=== PATIENT | male | born 1980 | race Caucasian/White ===

== ENCOUNTER 2021-12-12 07:59 | Emergency (ER) | payer OTHER, SELFPAY ==
--- NOTE | ~2021-12-12 | XR_ITS ---
EXAMINATION: XR TIBIA-FIBULA LEFT XR FOOT, LEFT CLINICAL INFORMATION: Leg pain. Left foot pain. Question osteomyelitis, fracture. COMPARISON: None TECHNIQUE: AP, lateral, and oblique views of the left foot. FINDINGS: Left tibia and fibula: Bones are osteopenic. Cortical irregularity at the proximal fibular shaft is consistent with an old healed fracture. No acute fracture or malalignment. Mild osteoarthritis of the knee. Multiple dystrophic calcifications are noted. Soft tissues are diffusely swollen and edematous. Fatty atrophy of the calf musculature is suspected. Mild osteoarthritis is noted at the talocrural joint. Left foot: Soft tissues are diffusely swollen and edematous at the foot. There is diffuse osteopenia throughout the forefoot. Subtle erosions at the metatarsal heads and phalanges are possible, though sensitivity is limited by the degree of pre-existing osteopenia. No clear foci of active osseous destruction are identified. Hyperdensity in the overlying soft tissues is likely due to overlying skin changes. Mild pes cavus morphology at the foot. No fractures. XR/XR tibia fibula LT 2V IMPRESSION: Marked soft tissue swelling in the left lower leg and foot. No fractures. No clear findings of osteomyelitis are identified, though sensitivity for osteomyelitis at the forefoot is limited by the significant osteopenia in this region. Consider correlation with MRI of the left forefoot with and without contrast for further assessment if there is significant clinical concern for osteomyelitis in this region.
--- NOTE | ~2021-12-12 | US_ITS ---
EXAMINATION: US VENOUS ULTRASOUND WITH DOPPLER LOWER EXTREMITY, LEFT CLINICAL INFORMATION: Left lower extremity pain, rule out deep venous thrombosis. COMPARISON: None TECHNIQUE: Ultrasound of the deep veins is performed from the hip to the calf with compression sonography and color and pulse Doppler assessment. Spectral analysis with color-flow imaging is performed. FINDINGS: There is normal venous compression and respiratory variation and augmented flow. The visualized common femoral vein, superficial femoral vein, profunda femoral vein, popliteal vein, and the trifurcation region shows no evidence of deep venous thrombosis. No left popliteal cyst. The subcutaneous soft tissues are unremarkable. If the patient's symptoms persist, followup ultrasound in 5 days 7 days might be of value to exclude proximal propagation from a non-visualized calf vein. US/US venous duplex LE IMPRESSION: No DVT demonstrated in the left lower extremity.
--- NOTE | ~2021-12-12 | XR_ITS ---
EXAMINATION: XR TIBIA-FIBULA LEFT XR FOOT, LEFT CLINICAL INFORMATION: Leg pain. Left foot pain. Question osteomyelitis, fracture. COMPARISON: None TECHNIQUE: AP, lateral, and oblique views of the left foot. FINDINGS: Left tibia and fibula: Bones are osteopenic. Cortical irregularity at the proximal fibular shaft is consistent with an old healed fracture. No acute fracture or malalignment. Mild osteoarthritis of the knee. Multiple dystrophic calcifications are noted. Soft tissues are diffusely swollen and edematous. Fatty atrophy of the calf musculature is suspected. Mild osteoarthritis is noted at the talocrural joint. Left foot: Soft tissues are diffusely swollen and edematous at the foot. There is diffuse osteopenia throughout the forefoot. Subtle erosions at the metatarsal heads and phalanges are possible, though sensitivity is limited by the degree of pre-existing osteopenia. No clear foci of active osseous destruction are identified. Hyperdensity in the overlying soft tissues is likely due to overlying skin changes. Mild pes cavus morphology at the foot. No fractures. XR/XR foot LT 2V IMPRESSION: Marked soft tissue swelling in the left lower leg and foot. No fractures. No clear findings of osteomyelitis are identified, though sensitivity for osteomyelitis at the forefoot is limited by the significant osteopenia in this region. Consider correlation with MRI of the left forefoot with and without contrast for further assessment if there is significant clinical concern for osteomyelitis in this region.
[2021-12-12 08:06] VITALS: BP 144/95; BP 166/100; PULSE 106; PULSE 107; RESP 22; TEMP 36.8; O2SAT 96; O2SAT 98; BMI 62.1
[2021-12-12] MEDS: Ketorolac Tromethamine 30 MG/ML VIAL IM (09:02)
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
[2021-12-12 09:31] LABS: MANUAL DIFF FLAG NO
[2021-12-12 09:34] LABS: Basophils Percent Auto 0.2 % (0-2); Eosinophils Absolute Auto 0.1 X10*3/uL (0.0-0.4); Eosinophils Percent Auto 0.4 % (0-4); Hemoglobin 12.3 g/dl (14.0-18.0); Imm Gran Abs Auto 0.08 X10*3/uL (0.00-0.03); Imm Gran Pct Auto 0.6 % (0.0-0.4); Lymphocytes Absolute Auto 0.9 X10*3/uL (1.2-4.9); Lymphocytes Percent Auto 6.6 % (20-40); Mean Corpuscular HGB Conc 31.5 g/dl (31.0-36.0); Mean Corpuscular Hemoglobin 25.2 pg (27.0-33.0); Mean Corpuscular Volume 79.9 fL (80.0-98.0); Mean Platelet Volume 10.4 fL (9.4-12.4); Monocytes Absolute Auto 0.4 X10*3/uL (0.1-1.2); Monocytes Percent Auto 3.2 % (2-11); Neutrophils Absolute Auto 11.6 x10*3/uL (2.0-8.3); Platelet Count 280 X10*3/uL (160-400); Red Blood Count 4.88 X10*6/uL (4.60-5.80); Red Cell Distribution Width 13.7 % (11.0-16.0)
[2021-12-12 10:00] LABS: Alanine Aminotransferase 25 U/L (0-40); Albumin Level 3.7 g/dL (3.5-5.0); Alkaline Phosphatase 99 U/L (39-117); Anion Gap 14 (12-20); Aspartate Amino Transferase 19 U/L (5-37); Bilirubin Total 0.3 mg/dL (0.0-1.0); Blood Urea Nitrogen 10 mg/dL (9-16); Calcium 9.2 mg/dL (8.4-10.2); Carbon Dioxide 26 mmol/L (22-29); Chloride 100 mmol/L (96-108); Creatinine Clr Calc Pharmacy 188.1; Estimated Glomerular Filt Rate > 60; Glucose Random 289 mg/dL (60-115); Potassium 4.2 mmol/L (3.3-5.1); Sodium 136 mmol/L (135-145)
[2021-12-12 10:38] LABS: Erythrocyte Sedimentation Rate 34 MM/HR (0-15)
--- NOTE | 2021-12-12 12:37 | P.CONGS_ITS ---
History of Present Illness Consult details Consult date: 12/12/21 Reason for consult: other (Chronic foot callus with bleeding and cellulitis left lower extremity) Requesting physician: Eros Polk Narrative: The patient is a 41-year-old morbidly obese gentleman with BMI of 62.1, type 2 diabetes, hypertension and a history of left lower extremity trauma with chronic pain and history of lower extremity edema in the emergency department because of cellulitis. I was asked to evaluate chronic calluses with fissures and bleeding. The patient endorses is callused feet have been a problem for some number of years and is seeing a [place] tribunal member but has not followed up recently. He believes his last appointment was several months ago. Patient also reports left lower extremity pain and is being admitted for cellulitis of his left lower extremity. He reports increasing pain but denies any fevers. Review of Systems Review of Systems: Yes all other systems are reviewed and are negative [facility] Family History Family History (Updated 10/16/20 @ 10:18 by Regine Alvarado [facility]) Father Diabetes Mother Hypertension Maternal Grandfather Diabetes Maternal Grandmother Malignant tumor of esophagus, Onset Age: 48 Social History Social History Advance Directives: No Advance Directives Information Provided: Yes Meds Allergies Allergy/AdvReac Type Severity Reaction Status Date / Time morphine Allergy Severe Anaphylaxis Verified 10/16/20 10:23 cephalexin AdvReac Mild Heartburn Verified 10/16/20 10:23 hydrochlorothiazide AdvReac Unknown Swelling Verified 10/16/20 10:23 Home Medications Medication Instructions Recorded Confirmed Last Taken Type albuterol sulfate 90 mcg/actuation 2 puff INHALATION Q4-6H PRN 10/16/20 Unknown History aerosol inhaler (Ventolin HFA) atorvastatin 20 mg tablet 20 mg PO DAILY 10/16/20 Unknown History betamethasone, augmented 0.05 % 1 appl TOPICAL DAILY PRN 10/16/20 Unknown History topical ointment blood sugar diagnostic #10 ea 10/16/20 Unknown History blood-glucose meter (FreeStyle #1 ea 10/16/20 Unknown History Lite Meter) cholecalciferol (vitamin D3) 50 50 mcg PO DAILY 10/16/20 Unknown History mcg (2,000 unit) capsule citalopram 10 mg tablet 10 mg PO DAILY 10/16/20 Unknown History clotrimazole 1 % topical cream 1 appl TOPICAL BID 10/16/20 Unknown History glipizide 10 mg tablet 10 mg PO BID 10/16/20 Unknown History hydroxyzine HCl 25 mg tablet 25 mg PO BEDTIME 10/16/20 Unknown History insulin glargine 100 unit/mL (3 30 unit SUBCUT BID ml 10/16/20 Unknown History mL) subcutaneous pen (Basaglar KwikPen U-100 Insulin) lancets 28 gauge (FreeStyle #100 ea 10/16/20 Unknown History Lancets) lisinopril 40 mg tablet 40 mg PO DAILY 10/16/20 Unknown History metformin 500 mg tablet,extended 1,000 mg PO BID tab 10/16/20 Unknown History release 24 hr naproxen 500 mg tablet 500 mg PO BID PRN 10/16/20 Unknown History pen needle, diabetic 31 gauge x #50 ea 10/16/20 Unknown History 10/22 (BD Ultra-Fine Mini Pen Needle) sitagliptin 100 mg tablet (Januvia) 100 mg PO DAILY 10/16/20 Unknown History Physical Exam Vital Signs: Vital Signs: Last Vital Signs Temp 98.3 F 12/12/21 08:06 Pulse 107 H 12/12/21 08:06 Resp 22 H 12/12/21 08:06 BP 144/95 H 12/12/21 08:06 Pulse Ox 98 12/12/21 08:06 BMI result Body Mass Index 62.1 On exam, he is cooperative and communicative. Judgment and insight and affect appear appropriate His abdomen is morbidly obese He has bilateral lower extremity edema and hypertrophic calluses with fissures bilaterally. No gross purulence is appreciated. Per ER assessment, dorsalis pedis and posterior tibial arterial flow is intact by Doppler. Results Labs Result diagrams: 12/12/21 09:27 12/12/21 09:27 Labs: Abnormal lab results 12/12/21 12/12/21 12/12/21 Range/Units 09:27 09:27 09:27 WBC 13.0 H (4.8-10.8) X10*3/uL Hgb 12.3 L (14.0-18.0) g/dl Hct 39.0 L (42.0-52.0) % MCV 79.9 L (80.0-98.0) fL MCH 25.2 L (27.0-33.0) pg Immature Gran % (Auto) 0.6 H (0.0-0.4) % Neut % (Auto) 89.0 H (45-73) % Lymph % (Auto) 6.6 L (20-40) % Lymph # (Auto) 0.9 L (1.2-4.9) X10*3/uL Abs Immat Gran (auto) 0.08 H (0.00-0.03) X10*3/uL Absolute Neuts (auto) 11.6 H (2.0-8.3) x10*3/uL ESR 34 H (0-15) MM/HR Random Glucose 289 H (60-115) mg/dL C-Reactive Protein 2.60 H (< or = 0.50) mg/dL Short CBC 12/12/21 Range/Units 09:27 WBC 13.0 H (4.8-10.8) X10*3/uL Hgb 12.3 L (14.0-18.0) g/dl Hct 39.0 L (42.0-52.0) % Plt Count 280 (160-400) X10*3/uL BMP 12/12/21 09:27 Sodium 136 Potassium 4.2 Chloride 100 Carbon Dioxide 26 BUN 10 Creatinine 0.85 Calcium 9.2 Liver Function 12/12/21 Range/Units 09:27 Total Bilirubin 0.3 (0.0-1.0) mg/dL AST 19 (5-37) U/L ALT 25 (0-40) U/L Alkaline Phosphatase 99 (39-117) U/L Albumin 3.7 (3.5-5.0) g/dL All other labs normal. Assessment and Plan (1) Callus of foot: Status: Acute (2) Cracked skin on feet: Status: Acute (3) Morbid (severe) obesity due to excess calories: Status: Acute Plan I do not appreciate any necrotic/gangrenous tissue that requires immediate surgical debridement. In discussion with the ER team, the patient will be admitted to medicine for antibiotics regarding his cellulitis and can follow up with his [place] tribunal member on an outpatient basis. Please call me if there are surgical questions. Procedures Date of Service Date of Service: 12/12/21
== END 2021-12-12 16:48 | disposition home or self-care (01) ==
PROVIDERS: Physician Assistant; Emergency Provider Emergency Medicine Emergency Medical Services
DX: M79.605 Pain in left leg (principal); L84 Corns and callosities; R23.4 Changes in skin texture; I87.8 Other specified disorders of veins; E66.9 Obesity, unspecified; Z68.44 Body mass index [BMI] 60.0-69.9, adult
CPT/HCPCS: 36415; 73590; 73620; 80053; 85025; 85652; 86140; 93971; 96372; 99284; J1885

== ENCOUNTER → 2023-01-11 11:28 | Outpatient (BNVA) | payer OTHER, SELFPAY | PROVIDERS: PCP Nurse Practitioner Primary Care; Visit Provider Anesthesiology | DX: S72.91XK Unspecified fracture of right femur, subsequent encounter for closed fracture with nonunion (principal); B35.3 Tinea pedis; E66.01 Morbid (severe) obesity due to excess calories; G89.4 Chronic pain syndrome; Z68.44 Body mass index [BMI] 60.0-69.9, adult | CPT/HCPCS: 99202 ==